=== PATIENT | male | born 1965 | race Caucasian/White ===

== ENCOUNTER 2022-04-04 11:18 | Inpatient (IN) ==
[2022-04-04] MEDS ORDERED: ACETAMINOPHEN 325 MG TABLET PO PRN (11:36)
[2022-04-04] MEDS ORDERED: ONDANSETRON 4 MG/2 ML VIAL IV PRN (11:36)
[2022-04-04] MEDS ORDERED: MAGNESIUM HYDROXIDE SUSP 30 ML UDCUP PO PRN (11:36)
[2022-04-04] MEDS ORDERED: ZALEPLON 5 MG CAPSULE PO PRN (11:48)
[2022-04-04 15:05] LABS: Basophils # 0.1 10*3/uL (0.0-0.2); Basophils % 1.7 % (0.0-0.8); Eosinophils % 0.6 % (0.00-10.9); Hematocrit 49.7 VOL% (42.0-52.0); Hemoglobin 16.8 GM/DL (14.0-18.0); Immature Granulocytes % 3.9 %; Immature Granulocytes Absolute 0.21 #; Lymphocytes # 0.8 10*3/uL (1.4-4.0); Lymphocytes % 15.2 % (21.2-54.2); Mean Corpuscular HGB Conc 33.8 GM/DL (32-36); Mean Corpuscular Volume 89.7 FL (87-102); Monocytes # 0.8 10*3/uL (0.11-0.8); Monocytes % 14.6 % (1.7-12.7); Platelet Count 228 T/CUMM (130-400); Red Blood Count 5.54 MC/CUMM (3.8-5.5); Red Cell Distribution Width 13.6 % (9.3-17.3); White Blood Count 5.4 T/CUMM (4-12)
[2022-04-04 15:29] LABS: Albumin 3.6 G/DL (3.4-5.0); Bilirubin,Total 0.8 MG/DL (0.20-1.00); Calcium 8.7 MG/DL (8.5-10.1); Osmolality,Calculated 266.1 MOS/KG (273-304); Potassium 4.6 MMOL/L (3.5-5.1); Total Protein 7.4 G/DL (6.4-8.2)
[2022-04-04 15:32] LABS: Band Neutrophils 35 % (0-10); Lymphocytes 12 % (20-55); Nucleated Red Blood Cells 1 (0-5); Total Cells Counted 100
[2022-04-04 15:33] LABS: Platelet Estimate Adequate
[2022-04-04] MEDS: SODIUM CHLORIDE 0.9% 1,000 ML IV SCH ×2 (16:04→23:16)
[2022-04-04] MEDS: PANTOPRAZOLE 40 MG TABLET PO SCH (16:04)
[2022-04-04] MEDS: INSULIN LISPRO 100 UNIT/ML SUBCUT SCH ×2 (16:05→20:32)
[2022-04-04 19:40] LABS: Mucus,Urine Occasional /LPF (Occasional); RBC,Urine 1 /HPF (0-4); Urine Appearance Clear (Clear); Urine Color Yellow (Yellow)
[2022-04-04 19:41] LABS: Bilirubin,Urine Small mg/dL (Negative); Blood, Urine Trace mg/dL (Negative); Glucose,Urine (UA) 500 mg/dL (Negative); Ketones,Urine >160 mg/dL (Negative); Nitrite,Urine Negative (Negative); Protein,Urine 30 mg/dL (Negative); Urine Specific Gravity 1.028 (1.001-1.035); Urine Urobilinogen 0.2 eU/dL (<2.0); Urine pH 5.5 (4.5-8.0)
[2022-04-05 07:12] LABS: Calcium 8.1 MG/DL (8.5-10.1); Osmolality,Calculated 273.2 MOS/KG (273-304); Potassium 4.1 MMOL/L (3.5-5.1); VLDL Cholesterol 28.2 MG/DL
[2022-04-05] MEDS: SODIUM CHLORIDE 0.9% 1,000 ML IV SCH ×2 (07:16→13:58)
[2022-04-05] MEDS ORDERED: ASPIRIN EC 81 MG TABLET PO SCH (09:00)
[2022-04-05] MEDS ORDERED: GLUCAGON 1 MG VIAL IM PRN (10:24)
[2022-04-05] MEDS ORDERED: DEXTROSE 10% 250 ML BAG IV PRN (10:29)
[2022-04-05] MEDS: PANTOPRAZOLE 40 MG TABLET PO SCH (11:06)
[2022-04-05] MEDS: INSULIN LISPRO 100 UNIT/ML SUBCUT SCH ×2 (11:11→13:00)
[2022-04-05 12:34] VITALS: BP 158/74
[2022-04-05] MEDS ORDERED: glipiZIDE 10 MG TABLET PO SCH (21:00)
[2022-04-06] MEDS ORDERED: NON-FORMULARY MEDICATION (Aspirin 81 mg Tablet) PO SCH (09:00)
[2022-04-06] MEDS ORDERED: PIOGLITAZONE 15 MG TABLET PO SCH (09:00)
[2022-04-06] MEDS ORDERED: SIMVASTATIN 10 MG TABLET PO SCH (21:00)
[2022-04-08 18:56] LABS: CDT Result Negative (Negative); CDT Specimen Source STOOL
== END 2022-04-05 15:30 | disposition home or self-care (01) | DRG 866 ==
LOC: N.ADMINP 12:01
PROVIDERS: ADMIT Family Medicine; ATTEND Family Medicine